=== PATIENT | male | born 1985 | race Caucasian/White ===

== ENCOUNTER 2020-09-20 04:50 | Emergency (ER) | payer OTHER, SELFPAY ==
--- NOTE | ~2020-09-20 | CT_ITS ---
EXAMINATION: CT abdomen pelvis wo con DATE: 09/20/2020 06:54 INDICATION: Upper abdominal pain, nausea and vomiting TECHNIQUE: Computed tomography (CT) of the abdomen and pelvis was performed without intravenous contr ast. Automated exposure control and iterative reconstruction technique were employed. The dose-length product was 827.82 mGy-cm. COMPARISON: None FINDINGS: Calcified pleural-based nodule in the right middle lobe consistent with old granulomatous disease. He art size is normal. No pericardial or pleural effusion. Potentially impacted gallstone at the neck of the gallbladder which is dilated to is 3.8 cm in maximal diameter which remains within normal limits . There is however suggestion of a thin rim of subtle haziness to the pericholecystic fat suspicious for acute cholecystitis. Liver, spleen, pancreas, bilateral adrenal glands and kidneys are normal. Bl adder is normal. Bowels including the appendix are normal. No free intraperitoneal gas or fluid. No p athologically enlarged abdominal or pelvic lymphadenopathy. Mild thoracic and lumbar spondylosis with multiple scattered Schmorl's nodes. IMPRESSION: 1. Suggestion of acute cholecystitis with likely impacted gallstone at the neck of the gallbladder an d very subtle pericholecystic inflammatory changes. Correlate for Boyd sign. If equivocal could con director of primary care HIDA scan for further evaluation. Reviewed, dictated and finalized at location A. IMPRESSION: 1. Suggestion of acute cholecystitis with likely impacted gallstone at the neck of the gallbladder and very subtle pericholecystic inflammatory changes. Corre late for Boyd sign. If equivocal could consider HIDA scan for further evaluat ion.
[2020-09-20 04:50] VITALS: BP 153/105; PULSE 56; RESP 20; TEMP 36.3; O2SAT 100
[2020-09-20] MEDS: KETOROLAC 30 MG/ML VIAL (*BKC) IV PUSH (05:28)
[2020-09-20] MEDS: SODIUM CHLORIDE 0.9% IV 1,000 ML 999 ML IV CONT (05:28)
[2020-09-20] MEDS: ONDANSETRON INJ 4 MG/2 ML VIAL IV PUSH (05:29)
[2020-09-20 05:43] LABS: Add Urine Microscopic? NO; Appearance Urine Clear (Clear); Basophils Absolute Auto 0.08 K/mm3 (0.00-0.10); Basophils Percent Auto 0.7 % (0.0-1.0); Bilirubin Urine Negative (Negative); Blood Urine Negative (Negative); Color Urine Yellow (Yellow); Eosinophils Absolute Auto 0.46 K/mm3 (0.02-0.50); Eosinophils Percent Auto 3.8 % (1.0-6.0); Glucose Urine UA Negative (Negative); Hemoglobin 13.9 g/dL (14.0-18.0); Immature Granulocyte Absolute 0.07 K/mm3 (0.00-0.00); Immature Granulocyte Percent A 0.6 % (0.0-0.0); Ketones Urine Negative (Negative); Leukocyte Esterase Ur Negative (Negative); Lymphocytes Absolute Auto 2.81 K/mm3 (1.10-4.50); Lymphocytes Percent Auto 23.4 % (18.0-42.0); Mean Corpuscular HGB Conc 33.9 g/dL (32.0-36.0); Mean Corpuscular Hemoglobin 29.9 pg (27.0-31.0); Mean Corpuscular Volume 88.2 fL (78.0-102.0); Mean Platelet Volume 11.2 fl (8.7-11.0); Monocytes Absolute Auto 0.91 K/mm3 (0.10-0.90); Monocytes Percent Auto 7.6 % (2.0-11.0); Neutrophils Absolute Auto 7.7 K/mm3 (1.7-7.2); Neutrophils Percent Auto 63.9 % (50.0-70.0); Nitrate Urine Negative (Negative); Platelet Count Result 279 K/mm3 (150-420); Protein Urine Negative (Negative); Red Blood Count 4.65 M/mm3 (4.70-6.10); Red Cell Distribution Width 11.9 % (11.6-14.4)
[2020-09-20 05:53] LABS: Alanine Aminotransferase 37 U/L (16-63); Albumin Level 3.5 g/dL (3.4-5.0); Alkaline Phosphatase 55 U/L (46-116); Anion Gap 10 mmol/L (8-16); Aspartate Amino Transferase 20 U/L (15-37); Bilirubin,Total 0.2 mg/dL (0.00-1.00); Blood Urea Nitrogen 14 mg/dL (7-18); Calcium 8.3 mg/dL (8.5-10.1); Carbon Dioxide 25 mmol/L (21-32); Chloride 105 mmol/L (98-108); Estimated CRCL calculation 97 ml/min; Estimated Glomerular Filt Rate > 60; Glucose 115 mg/dL (70-99); Lipase 82 U/L (73-393); Osmolality Calculated 291 mOsm/kg (285-295); Sodium 140 mmol/L (136-145)
--- NOTE | 2020-09-20 06:42 | ED.GENADULT ---
HPI - General Adult General Chief complaint: Abdominal Pain Stated complaint: Abdominal Pain Source: patient History of Present Illness HPI narrative: this is a 34-year-old male who presents with abdominal pain that radiates to his back mainly the left flank area with some nausea no fever chills patient has a history of diverticulitis and kidney stones. Pain started earlier this morning and and intensified over the morning hours. There is no chest pain no shortness of breath patient does state that he has had hematuria with no dysuria. Onset (ago): hour(s) Location: back and abdomen Radiation: back Severity: moderate Severity scale (1-10): 6 Quality: aching Pain Consistency: intermittent Related Data Allergies Allergy/AdvReac Type Severity Reaction Status Date / Time [place] dust Allergy Rash Uncoded 09/20/20 05:05 Review of Systems Review of Systems: All systems reviewed & are unremarkable except as noted in HPI and below PMFSH Past Medical History Medical History History of diverticulitis History of kidney stones Exam Const: General: no acute distress and alert Orientation/consciousness: patient oriented x3 HENMT: Head: normal to inspection Eyes: Conjunctivae: conjunctivae normal Pupils: Equal, round and reactive pupils present EOM: EOMs intact bilaterally Chest: Chest palpation & inspection: normal inspection of the chest Resp: Effort & Inspection: normal respiratory effort GI: GI Palp: Yes Soft to palpation and Yes Tenderness to palpation present (GI) Back/Spine/Pelvis: Back: CVA tenderness Neuro: General: patient oriented x3 Extrem: General: normal to inspection Psych: Mental Status: mental status grossly normal Affect: normal affect Course Course Emergency Course: reassessment of patient appears comfortable after receiving Zofran and IV Toradol labs reviewed with patient Vital Signs Vital signs: Vital Signs Temperature 36.3 C L 09/20/20 04:50 Pulse Rate 56 L 09/20/20 04:50 Respiratory Rate 09/20/20 04:50 Blood Pressure 153/105 H 09/20/20 04:50 Pulse Oximetry 100 09/20/20 04:50 Temperature 36.3 C L 09/20/20 04:50 Pulse Rate 56 L 09/20/20 04:50 Respiratory Rate 09/20/20 04:50 Blood Pressure 153/105 H 09/20/20 04:50 Pulse Oximetry 100 09/20/21 04:50 Medical Decision Making Vital Signs Vital Signs: Vital Signs Temperature 36.3 C L 09/20/20 04:50 Pulse Rate 56 L 09/20/20 04:50 Respiratory Rate 09/20/20 04:50 Blood Pressure 153/105 H 09/20/20 04:50 Pulse Oximetry 09/20/20 04:50 Temperature 36.3 C L 09/20/20 04:50 Pulse Rate 56 L 09/20/20 04:50 Respiratory Rate 09/20/20 04:50 Blood Pressure 153/105 H 09/20/20 04:50 Pulse Oximetry 09/20/20 04:50 Lab Data Result diagrams: 09/20/20 05:31 09/20/20 05:31 Labs: Lab Results 09/20/20 09/20/20 09/20/20 Range/Units 05:31 05:31 05:31 WBC 12.0 H (4.8-10.8) K/mm3 RBC 4.65 L (4.70-6.10) M/mm3 Hgb 13.9 L (14.0-18.0) g/dL Hct 41.0 (40.0-54.0) % MCV 88.2 (78.0-102.0) fL MCH 29.9 (27.0-31.0) pg MCHC 33.9 (32.0-36.0) g/dL RDW 11.9 (11.6-14.4) % Plt Count 279 (150-420) K/mm3 MPV 11.2 H (8.7-11.0) fl Immature Gran % (Auto) 0.6 H (0.0-0.0) % Neut % (Auto) 63.9 (50.0-70.0) % Lymph % (Auto) 23.4 (18.0-42.0) % [place] % (Auto) 7.6 (2.0-11.0) % Eos % (Auto) 3.8 (1.0-6.0) % Baso % (Auto) 0.7 (0.0-1.0) % Lymph # (Auto) 2.81 (1.10-4.50) K/mm3 [place] # (Auto) 0.91 H (0.10-0.90) K/mm3 Eos # (Auto) 0.46 (0.02-0.50) K/mm3 Baso # (Auto) 0.08 (0.00-0.10) K/mm3 Abs Immat Gran (auto) 0.07 H (0.00-0.00) K/mm3 Absolute Neuts (auto) 7.7 H (1.7-7.2) K/mm3 Absolute Nucleated RBC 0.00 (0.00-0.00) K/mm3 Nucleated RBC % 0.0 (0-0.0) % Sodium 140 (136-145) mmol/L Potassium 4.0
--- NOTE | 2020-09-20 06:52 | PC.NURSE ---
pt resting eyes closed. stated feeling much better .
[2020-09-20 06:56] VITALS: BP 132/95; PULSE 76; RESP 20; TEMP 36.3; O2SAT 98
== END 2020-09-20 07:03 | disposition home or self-care (01) ==
PROVIDERS: Emergency Provider Emergency Medicine; PCP Physician Assistant
DX: K80.80 Other cholelithiasis without obstruction (principal)
CPT/HCPCS: 36415; 74176; 80053; 81003; 83690; 85025; 96361; 96374; 96375; 99283; 99284; J1885; J2405; J7030

== ENCOUNTER 2020-10-30 02:57 | Emergency (ER) | payer OTHER, SELFPAY ==
--- NOTE | ~2020-10-30 | US_ITS ---
EXAMINATION: US right upper quadrant DATE: 10/30/2020 07:49 INDICATION: Right upper quadrant abdominal pain. TECHNIQUE: Multiple grayscale and Doppler ultrasound images of the abdomen were obtained. COMPARISON: CT abdomen and pelvis 09/20/2020 FINDINGS: The visualized portions of the head, body, and tail of the pancreas are normal. There is di ffuse hepatic steatosis. No liver surface nodularity. There is normal flow in main portal vein. The g allbladder is normal in size and contains a gallstone in the neck. Gallbladder wall thickening is not ed. There was a positive sonographic Boyd sign. The common duct is normal and measures 3 mm. IMPRESSION: 1. Acute cholecystitis. 2. Diffuse hepatic steatosis. Reviewed, dictated and finalized at location A.
[2020-10-30 03:00] VITALS: BP 172/109; PULSE 60; RESP 20; TEMP 36.6; O2SAT 99
--- NOTE | 2020-10-30 03:12 | ED.ABDPAIN ---
HPI - Abdominal Pain General Chief Complaint: Abdominal Pain Stated Complaint: Back pain/ Stomach pain Time Seen by Provider: 10/30/20 03:12 Source: patient Mode of arrival: ambulatory Limitations: no limitations History of Present Illness HPI narrative: 34-year-old man with a history of urolithiasis and who was diagnosed with gallstone cholecystitis on September 20 comes in today complaining of right upper quadrant pain radiating to his mid abdomen and nausea that started approximately 4 hours ago. Patient states that after he was diagnosed with cholecystitis and he did not follow up with his doctor because his pain resolved. He has had no issues until this evening. He states that he has been having some dysuria intermittently but no hematuria. He denies vomiting, fever, diarrhea, jaundice, back pain, or chest pain. MD elicited complaint: abdominal pain Pertinent past history: kidney stones and other ( Gallstone cholecystitis) Onset (ago): hour(s) (4) Location: RUQ Severity: severe Quality: cramping Radiation: other ( mid abdomen) Migration to: no migration Exacerbating factors: nothing Relieving factors: nothing Context: confirms history of similar episodes Associated symptoms: nausea Related Data Home Medications Medication Instructions Recorded Confirmed No Home Medications 10/30/20 10/30/20 Allergies Allergy/AdvReac Type Severity Reaction Status Date / Time hydrocodone Allergy Unknown Verified 10/30/20 03:38 [place] dust Allergy Unknown Rash Uncoded 10/30/20 03:38 Review of Systems Review of Systems: All systems reviewed & are unremarkable except as noted in HPI and below Constitutional: Constitutional: Denies chills and Denies fever(s) Eyes: Eyes: Denies change in vision and Denies photophobia ENT: Denies nasal congestion and Denies sore throat Cardiovascular: Cardiovascular: Denies chest pain and Denies radiating jaw, neck or arm pain Respiratory: Respiratory: Denies cough, Denies dyspnea and Denies wheezing Gastrointestinal: Gastrointestinal: Reports abdominal pain, Denies diarrhea, Reports nausea and Denies vomiting Genitourinary: Genitourinary: Denies hematuria, Reports dysuria and Denies urinary frequency Musculoskeletal: Musculoskeletal: Denies back pain, Denies arthralgias and Denies joint swelling Integumentary/Breasts: Skin/Breast: Denies pruritus, Denies erythema and Denies rash Neurologic: Denies vertigo, Denies dizziness and Denies syncope Hematologic/Lymphatic: Hematologic/Lymphatic: Denies easy bleeding and Denies easy bruising Allergic/Immunologic: Allergic/Immunologic: Denies lip swelling and Denies throat swelling [facility] Past Medical History Medical History History of diverticulitis History of kidney stones Social History Social History Smoking status: Current every day smoker Substance use: current Substance use type: marijuana Other substance usage details: daily Living arrangements: with family Exam Const: General: healthy appearing and alert Orientation/consciousness: patient oriented x3 Limitations: no limitations Other: moderate acute distress. HENMT: Head: normal to inspection Face and sinus: normal facial exam Mouth: Yes moist mucous membranes Throat: posterior oropharynx normal Eyes: Conjunctivae: conjunctivae normal Pupils: Equal, round and reactive pupils present EOM: EOMs intact bilaterally Resp: Effort & Inspection: normal respiratory effort and not labored Auscultation: clear to auscultation bilaterally, no rales, no rhonchi and no wheezes Cardio: Rate: regular rate Rhythm: regular rhythm Heart sounds: no murmurs GI: GI Palp: Yes Soft to palpation, Yes Tenderness to palpation present (GI) ( Right upper quadrant), No Guarding due to palpation present (GI) and No Rigid due to palpation Auscultation: normal bowel sounds Skin: G
[2020-10-30] MEDS: ONDANSETRON INJ 4 MG/2 ML VIAL IV PUSH (03:25)
[2020-10-30] MEDS: KETOROLAC 30 MG/ML VIAL (*BKC) IV PUSH (03:26)
[2020-10-30] MEDS: SODIUM CHLORIDE 0.9% IV 1,000 ML 999 ML IV CONT (03:30)
[2020-10-30 03:33] LABS: Basophils Absolute Auto 0.09 K/mm3 (0.00-0.10); Basophils Percent Auto 0.6 % (0.0-1.0); Eosinophils Absolute Auto 0.51 K/mm3 (0.02-0.50); Eosinophils Percent Auto 3.4 % (1.0-6.0); Hematocrit 41.5 % (40.0-54.0); Hemoglobin 14.5 g/dL (14.0-18.0); Immature Granulocyte Absolute 0.09 K/mm3 (0.00-0.00); Immature Granulocyte Percent A 0.6 % (0.0-0.0); Lymphocytes Percent Auto 28.8 % (18.0-42.0); Mean Corpuscular HGB Conc 34.9 g/dL (32.0-36.0); Mean Corpuscular Hemoglobin 30.1 pg (27.0-31.0); Mean Corpuscular Volume 86.3 fL (78.0-102.0); Mean Platelet Volume 10.7 fl (8.7-11.0); Monocytes Absolute Auto 1.18 K/mm3 (0.10-0.90); Monocytes Percent Auto 7.9 % (2.0-11.0); Neutrophils Absolute Auto 8.7 K/mm3 (1.7-7.2); Neutrophils Percent Auto 58.7 % (50.0-70.0); Platelet Count Result 274 K/mm3 (150-420); Red Blood Count 4.81 M/mm3 (4.70-6.10); Red Cell Distribution Width 11.8 % (11.6-14.4); White Blood Count 14.9 K/mm3 (4.8-10.8)
[2020-10-30 03:33] LABS: Add Urine Microscopic? YES; Appearance Urine Clear (Clear); Bilirubin Urine Negative (Negative); Blood Urine Negative (Negative); Color Urine Yellow (Yellow); Glucose Urine UA Negative (Negative); Ketones Urine Negative (Negative); Leukocyte Esterase Ur Negative LEU/UL (Negative); Nitrate Urine Negative (Negative); Protein Urine Trace (Negative); Specific Grav Ur 1.025 (1.010-1.020); Urobilinogen Urine 0.2 mg/dL (0.2-1.0); pH Urine 6.5 (5.0-8.0)
[2020-10-30] MEDS: PANTOPRAZOLE SODIUM IV 40 MG VIAL IV PUSH (03:34)
[2020-10-30] MEDS: HYDROmorphone HCL INJ (*CRX) 2 MG/ML VIAL 0.5 MG IV PUSH (03:35)
[2020-10-30 03:41] LABS: Amorphous Sediment Urine Few; Bacteria Urine Trace /hpf; RBC Urine 0-2 /hpf (0-2); WBC Urine 0-3 /hpf (0-3)
[2020-10-30 03:48] LABS: Alanine Aminotransferase 35 U/L (16-63); Albumin Level 3.7 g/dL (3.4-5.0); Alkaline Phosphatase 56 U/L (46-116); Anion Gap 15 mmol/L (8-16); Aspartate Amino Transferase 15 U/L (15-37); Bilirubin,Total 0.4 mg/dL (0.00-1.00); Blood Urea Nitrogen 19 mg/dL (7-18); Carbon Dioxide 22 mmol/L (21-32); Chloride 104 mmol/L (98-108); Estimated CRCL calculation 93 ml/min; Estimated Glomerular Filt Rate > 60; Glucose 121 mg/dL (70-99); Lipase 84 U/L (73-393); Osmolality Calculated 295 mOsm/kg (285-295); Potassium 3.5 mmol/L (3.5-5.1); Sodium 141 mmol/L (136-145); Total Protein 7.2 g/dL (6.4-8.2)
[2020-10-30 03:51] LABS: Lactic Acid Reflex 1.3 mmol/L (0.4-2.0)
[2020-10-30] MEDS: SODIUM CHLORIDE 0.9% IV 1,000 ML 200 ML IV CONT (04:16)
[2020-10-30 04:17] VITALS: BP 125/96; PULSE 58; RESP 18; O2SAT 99
--- NOTE | 2020-10-30 04:17 | PC.NURSE ---
Pt. resting, lights dimmed, POC discussed for U/S this AM, VSS and fluids infusing per order. Call mo in reach.
--- NOTE | 2020-10-30 07:16 | PC.NURSE ---
Pt. sleeping, report to TREY Harris
[2020-10-30] MEDS: metroNIDAZOLE 500 MG/ISO 100ML 500 MG/100 ML BAG 100 MG IVPB (08:29)
[2020-10-30] MEDS: NICOTINE (*PBKC) 21 MG PATCH 1 PATCH TRANSDERM (08:33)
--- NOTE | 2020-10-30 08:35 | ED.GENADULT ---
HPI - General Adult General Chief complaint: Abdominal Pain Stated complaint: Back pain/ Stomach pain Time Seen by Provider: 10/30/20 03:12 Source: patient Mode of arrival: ambulatory Limitations: no limitations History of Present Illness HPI narrative: Rony is a 34M with a PMH of gallstones, urolithiasis, tobacco abuse and MJ use that presented to the ED with RUQ pain. Care was taken over from Dr. Fuller at 0700. Please see his note for further details. Related Data Home Medications Medication Instructions Recorded Confirmed No Home Medications 10/30/20 10/30/20 Allergies Allergy/AdvReac Type Severity Reaction Status Date / Time hydrocodone Allergy Unknown Verified 10/30/20 03:38 [place] dust Allergy Unknown Rash Uncoded 10/30/20 03:38 Review of Systems Constitutional: Constitutional: Reports chills and Denies fever(s) Eyes: Eyes: Reports no additional eye complaints ENT: Reports system reviewed and no additional complaints, except as documented Cardiovascular: Cardiovascular: Reports no additional cardiovascular complaints Respiratory: Respiratory: Reports no additional respiratory complaints Gastrointestinal: Gastrointestinal: Reports as per HPI Genitourinary: Genitourinary: Reports no additional male genitourinary complaints Musculoskeletal: Musculoskeletal: Reports no additional musculoskeletal complaints Integumentary/Breasts: Skin/Breast: Reports system reviewed and no additional complaints, except as docu Neurologic: Reports system reviewed and no additional complaints, except as documented Psychiatric: Psychiatric: Reports no additional psychiatric complaints Endocrine: Endocrine: Reports no additional endocrine complaints Hematologic/Lymphatic: Hematologic/Lymphatic: Reports no additional hematologic/lymphatic complaints Allergic/Immunologic: Allergic/Immunologic: Reports no additional allergic/immunologic complaints [facility] Past Medical History Medical History History of diverticulitis History of kidney stones Social History Social History Smoking status: Current every day smoker Substance use: current Substance use type: marijuana Other substance usage details: daily Living arrangements: with family Exam Const: General: no acute distress and alert Orientation/consciousness: patient oriented x3 Limitations: No altered mental status HENMT: Head: normal to inspection Other: atraumatic Eyes: Conjunctivae: conjunctivae normal Pupils: Equal, round and reactive pupils present Resp: Effort & Inspection: normal respiratory effort Cardio: Rate: regular rate GI: Other: Abdominal exam was not repeated as it would cause additional pain and has already been done Skin: General skin exam: normal color Rashes: no rashes Neuro: General: patient oriented x3 and moves all extremities Extrem: General: normal to inspection Psych: Appearance: grossly normal Mental Status: mental status grossly normal Course Course Emergency Course: Care resumed at 0700 EXAMINATION: US right upper quadrant DATE: 10/30/2020 07:49 INDICATION: Right upper quadrant abdominal pain. TECHNIQUE: Multiple grayscale and Doppler ultrasound images of the abdomen were obtained. COMPARISON: CT abdomen and pelvis 09/20/2020 FINDINGS: The visualized portions of the head, body, and tail of the pancreas are normal. There is diffuse hepatic steatosis. No liver surface nodularity. There is normal flow in main portal vein. The gallbladder is normal in size and contains a gallstone in the neck. Gallbladder wall thickening is noted. There was a positive sonographic Boyd sign. The common duct is normal and measures 3 mm. IMPRESSION: 1. Acute cholecystitis. 2. Diffuse hepatic steatosis. Was started on ceftriaxone and metronidazole and [place] was contacted. I spoke with Dr. Boggs who recommended
--- NOTE | 2020-10-30 08:39 | PC.NURSE ---
[facility] transfer line contacted. awaiting call back
[2020-10-30 10:27] VITALS: BP 133/96; PULSE 55; RESP 14; TEMP 36.6; O2SAT 100
--- NOTE | 2020-11-01 10:16 | PC.NURSE ---
pt requested to be transferred to [facility]
== END 2020-10-30 10:20 | disposition short-term general hospital (02) ==
PROVIDERS: Emergency Provider Emergency Medicine; PCP Family Medicine
DX: K81.0 Acute cholecystitis (principal)
CPT/HCPCS: 36415; 76705; 80053; 81001; 83605; 83690; 85025; 96361; 96365; 96367; 96375; 99285; A9270; C9113; J0696; J1170; J1885; J2405; J7030

== ENCOUNTER 2021-03-21 17:47 | Emergency (ER) | payer OTHER, SELFPAY ==
[2021-03-21 17:55] VITALS: BP 148/101; PULSE 87; RESP 20; TEMP 36.2; O2SAT 97
--- NOTE | 2021-03-21 18:04 | ED.PSYCH ---
HPI - Psych General Chief Complaint: Psychiatric Symptoms Stated Complaint: Mental Health Eval Time Seen by Provider: 03/21/21 18:04 Source: patient Mode of arrival: ambulatory Limitations: no limitations History of Present Illness HPI Narrative: 35-year-old male with history of ADD, hypertension going through tough times. He lives with his father who has bipolar and schizophrenia. His father's house where he lives and has unpaid taxes and the county is due to take over the house. He is likely to become homeless. He is having problems with his sister who keeps wanting him that he makes very little money. Today when he got back from work his family wanted him to get psychiatrically evaluated. The patient feels that he has a punching bag for his family. the patient does not have a prior history of hospitalization for psychiatric issues. He presents to the ER with -- hopelessness and inability to improve his life. He feels depressed. He started a new job today at [employer]. -- On the way to the hospital the patient felt like crashing his car into an electrical pole. Subsequently the patient felt remorseful about his suicidal thought. Presently the patient does not feel suicidal. he does not feel homicidal. The patient has not ingested any drug or alcohol. He smokes marijuana intermittently. MD complaint: suicidal ideation and feels depressed Onset (ago): day(s) Duration: intermittent History of same: No Relieving factors: other ( Family matters) Context: recent drug abuse and other ( patient has had marijuana.) Associated psychiatric symptoms: depression and suicidal ideation Associated symptoms: denies other symptoms Treatments prior to arrival: none If self harm: admits thoughts of self harm and has plan Related Data Home Medications Medication Instructions Recorded Confirmed No Home Medications 10/30/20 03/21/21 Allergies Allergy/AdvReac Type Severity Reaction Status Date / Time hydrocodone Allergy Unknown Verified 10/30/20 03:38 [place] dust Allergy Unknown Rash Uncoded 10/30/20 03:38 Review of Systems Review of Systems: All systems reviewed & are unremarkable except as noted in HPI and below Constitutional: Constitutional: Reports as per HPI and Reports no additional constitutional complaints Eyes: Eyes: Reports as per HPI and Reports no additional eye complaints ENT: Reports system reviewed and no additional complaints, except as documented Cardiovascular: Cardiovascular: Reports as per HPI and Reports no additional cardiovascular complaints Respiratory: Respiratory: Reports as per HPI Gastrointestinal: Gastrointestinal: Reports as per HPI and Reports no additional gastrointestinal complaints Genitourinary: Genitourinary: Reports no additional male genitourinary complaints and Reports as per HPI Musculoskeletal: Musculoskeletal: Reports no additional musculoskeletal complaints Integumentary/Breasts: Skin/Breast: Reports system reviewed and no additional complaints, except as docu Neurologic: Reports system reviewed and no additional complaints, except as documented Psychiatric: Psychiatric: Reports no additional psychiatric complaints Endocrine: Endocrine: Reports no additional endocrine complaints Hematologic/Lymphatic: Hematologic/Lymphatic: Reports no additional hematologic/lymphatic complaints Allergic/Immunologic: Allergic/Immunologic: Reports no additional allergic/immunologic complaints [facility] Past Medical History Medical History History of diverticulitis History of kidney stones Family History Family History (Updated 03/21/21 @ 18:56 by Yimi Carlos MD) Father No problems noted. Social History Social History Smoking status: Current every day smoker Substance use: current Substance use type: marijuana Other substance usage details: daily
--- NOTE | 2021-03-21 18:05 | ECG_ITS ---
Measurements Intervals [place] Rate: 66 P: 66 HI: 161 QRS: 72 QRSD: 98 T: 60 QT: 360 QTc: 378 Interpretive Statements SINUS RHYTHM INCOMPLETE RIGHT BUNDLE BRANCH BLOCK BORDERLINE ECG Electronically Signed On 03-21-2021 20:13:01 SURVEY CAD TECHNICIAN by Sheldon Luz D.O.
[2021-03-21 18:17] LABS: Basophils Absolute Auto 0.08 K/mm3 (0.00-0.10); Basophils Percent Auto 0.6 % (0.0-1.0); Eosinophils Absolute Auto 0.23 K/mm3 (0.02-0.50); Eosinophils Percent Auto 1.8 % (1.0-6.0); Hematocrit 44.3 % (40.0-54.0); Hemoglobin 15.1 g/dL (14.0-18.0); Immature Granulocyte Absolute 0.07 K/mm3 (0.00-0.00); Immature Granulocyte Percent A 0.5 % (0.0-0.0); Lymphocytes Absolute Auto 3.31 K/mm3 (1.10-4.50); Mean Corpuscular HGB Conc 34.1 g/dL (32.0-36.0); Mean Corpuscular Hemoglobin 30.3 pg (27.0-31.0); Mean Platelet Volume 10.5 fl (8.7-11.0); Monocytes Absolute Auto 0.89 K/mm3 (0.10-0.90); Neutrophils Absolute Auto 8.2 K/mm3 (1.7-7.2); Neutrophils Percent Auto 64.1 % (50.0-70.0); Platelet Count Result 285 K/mm3 (150-420); Red Blood Count 4.98 M/mm3 (4.70-6.10); Red Cell Distribution Width 11.7 % (11.6-14.4); White Blood Count 12.8 K/mm3 (4.8-10.8)
[2021-03-21 18:33] LABS: Amphetamine Screen Urine Negative (Negative); Barbiturate Screen Urine Negative (Negative); Benzodiazepines Screen Urine Negative (Negative); Cannabinoid Screen Urine Positive (Negative); Cocaine Screen Urine Negative (Negative); Methadone Screen Urine Negative (Negative); Opiate Screen Urine Negative (Negative); Phencyclidine Screen Urine Negative (Negative)
--- NOTE | 2021-03-21 18:36 | PC.NURSE ---
report to TREY menendez. pt remains on visual monitor at desk.
[2021-03-21 18:43] LABS: Alanine Aminotransferase 29 U/L (16-63); Alkaline Phosphatase 57 U/L (46-116); Anion Gap 10 mmol/L (8-16); Aspartate Amino Transferase 23 U/L (15-37); Bilirubin,Total 0.5 mg/dL (0.00-1.00); Blood Urea Nitrogen 14 mg/dL (7-18); Calcium 8.9 mg/dL (8.5-10.1); Carbon Dioxide 29 mmol/L (21-32); Chloride 102 mmol/L (98-108); Estimated CRCL calculation 94 ml/min; Estimated Glomerular Filt Rate > 60; Glucose 91 mg/dL (70-99); Osmolality Calculated 292 mOsm/kg (285-295); Potassium 3.6 mmol/L (3.5-5.1); Sodium 141 mmol/L (136-145); Total Protein 7.9 g/dL (6.4-8.2); Troponin I 6.5 ng/L (0.00-60.4)
[2021-03-21 18:46] LABS: Thyroid Stimulating Hormone 2.24 uIU/mL (0.36-3.74)
[2021-03-21 18:46] LABS: Acetaminophen < 2 ug/mL (10-30); Ethanol < 3 mg/dL (0-6); Salicylate 5.1 mg/dL (2.8-20.0)
--- NOTE | 2021-03-21 19:05 | PC.NURSE ---
report to TREY Mendiola
[2021-03-21 19:26] LABS: SARS-CoV-2 RNA PCR Negative (Negative)
--- NOTE | 2021-03-21 20:52 | PC.NURSE ---
Patient currently doing evaluation by Misael Mills while in room. patient given lunch meal and something to drink at this time.
[2021-03-21 22:09] VITALS: BP 145/88; PULSE 70; RESP 16; TEMP 36.6; O2SAT 98
== END 2021-03-21 22:09 | disposition home or self-care (01) ==
PROVIDERS: Emergency Provider Internal Medicine Critical Care Medicine
DX: F32.A Depression, unspecified (principal); R45.851 Suicidal ideations; Z20.822 Contact with and (suspected) exposure to COVID-19
CPT/HCPCS: 36415; 80053; 80307; 84443; 84484; 85025; 93005; 99283; 99284; C9803; U0003; U0005

== ENCOUNTER 2024-12-30 06:31 | Emergency (ER) | payer OTHER, SELFPAY ==
--- NOTE | ~2024-12-30 | CT_ITS ---
Bobby Mallory EXAMINATION: CT abdomen pelvis w con COMPARISON: None HISTORY: RLQ abd pain; n/v/d TECHNIQUE: Axial images were obtained through the abdomen, pelvis post administration of IV contrast. Oral contrast was also administered. Coronal reconstruction images were obtained from the axial views. CT scan performed using dose optimization techniques including the following automated exposure control; adjustment of mA and/or kV; use of iterative reconstruction technique. Automatic exposure control was used to reduce radiation dose. Permanent radiation dose record is archived to PACS. FINDINGS: CT abdomen: LUNG BASES: The lung bases are clear. The visualized portions of the heart and pericardium are unremarkable. LIVER: Mild hepatic steatosis. Portal vein patent. No intrahepatic biliary duct dilatation. SPLEEN: Unremarkable. KIDNEYS: Right Kidney: Right kidney subcentimeter probable renal cysts. Left Kidney: Left kidney subcentimeter probable renal cysts. ADRENAL GLANDS: Unremarkable. PANCREAS: Unremarkable. GALLBLADDER/BILIARY: Postcholecystectomy. STOMACH AND ESOPHAGUS: Visualized stomach and esophagus within normal limits. BOWEL/MESENTERY: Mild hyperemia of the large bowel most marked involving the descending colon with multiple fluid filled loops of small and large bowel. Appendix normal. Mild hyperemia noted of the distal small bowel. There are no dilated small bowel loops. Mesentery normal. ADENOPATHY/RETROPERITONEUM: No lymphadenopathy. AORTA/VASCULATURE: Normal caliber aorta. FREE FLUID OR FREE AIR: No free fluid.. CT pelvis: SOLID ORGANS/REPRODUCTIVE: Unremarkable. BLADDER: Within normal limits. OSSEOUS STRUCTURES: No acute osseous abnormality.No suspicious lesions. OVERLYING SOFT TISSUES: Unremarkable. IMPRESSION: Mild probable enterocolitis Reviewed, dictated and finalized at location A. IMPRESSION: Mild probable enterocolitis
[2024-12-30 06:33] VITALS: BP 133/102; PULSE 83; RESP 18; TEMP 36.6; O2SAT 99
[2024-12-30 06:46] LABS: Hematocrit 48.3 % (42.0-52.0); Hemoglobin 16.3 g/dL (14.0-18.0); Immature Granulocyte Percent A 0.7 % (0-0.5); Lymphocytes Absolute Auto 1.31 K/mm3 (0.9-3.2); Mean Corpuscular HGB Conc 33.7 g/dl (32-36); Mean Corpuscular Hemoglobin 29.9 pg (26-34); Mean Corpuscular Volume 88.6 fl (80-100); Nucleated Red Blood Cells Absolute Auto 0.000 K/mm3 (0.0-0.012); Nucleated Red Blood Cells Perc 0.0 % (0.0-0.2); Platelet Count Result 392 k/mm3 (150-375); Red Blood Count 5.45 M/mm3 (4.6-6.20); White Blood Count 17.5 K/mm3 (4.5-10.0)
[2024-12-30 07:06] LABS: Add Urine Microscopic? YES; Appearance Urine Turbid (Clear); Glucose Urine UA Negative (Negative); Leukocyte Esterase Ur Trace LEU/UL (Negative); Need Manual Microscopic Reviewed; Nitrate Urine Negative (Negative); Specific Grav Ur 1.028 (1.001-1.035)
[2024-12-30 07:07] LABS: Alanine Aminotransferase 26 U/L (6-50); Albumin Level 4.6 g/dL (3.5-5.1); Alkaline Phosphatase 73 U/L (38-126); Anion Gap 10 mmol/L (4-12); Aspartate Amino Transferase 28 U/L (17-59); Bilirubin,Total 0.5 mg/dL (0.2-1.3); Blood Urea Nitrogen 15 mg/dL (9-20); Calcium 9.5 mg/dL (8.4-10.2); Carbon Dioxide 25 mmol/L (22-30); Chloride 105 mmol/L (98-107); Estimated CRCL calculation 93 ml/min; Estimated Glomerular Filt Rate > 60; Glucose 142 mg/dL (65-110); Lipase 43 U/L (23-300); Potassium 4.3 mmol/L (3.4-5.0); Sodium 140 mmol/L (137-145); Total Protein 8.7 g/dL (6.3-8.2)
--- NOTE | 2024-12-30 07:39 | PC.NURSE ---
patient ambulatory to bathroom and back to bed.
--- NOTE | 2024-12-30 08:05 | PC.NURSE ---
patient unable to urinate at this time. aware a urine sample is needed.
--- NOTE | 2024-12-30 08:07 | ED_ITS ---
HPI - Nausea/Vomiting/Diarrhea General Chief complaint: Nausea/Vomiting/Diarrhea Stated complaint: N/V/D Time Seen by Provider: 12/30/24 07:43 Source: patient and RN notes reviewed Mode of arrival: EMS Limitations: no limitations History of Present Illness HPI Narrative: Patient presents with report of acute onset nausea, vomiting, and diarrhea starting at approximately midnight. Patient currently living in his vehicle although he was in a hotel room last night when this started. He reports low abdominal pain particularly in the right lower quadrant. He denies any bloody emesis although he states towards the end it was black/dark, like aspiration.Potential sick contacts as his niece and nephew or in and out of school and his sister whom he sees regularly works in healthcare although known known sick contacts or anyone with similar symptoms. History of a stroke with resultant occasional left-sided numbness. He also has a history of kidney stones. He passed his last 1 approximately 2 months ago and states this was kidney stone 15. Travel has been in his car. He reports fever maximum temperature 102.0?. Last oral intake was on December 28 in the morning. He does not currently have an appetite. He has taken no medications prior to arrival. He states he has experienced pain like this before but not as intense. He notes he is supposed to follow with a resident care manager but he no longer has a primary care physician as his primary care physician left their practice to do telemedicine. He describes his stool as very watery but otherwise nonbloody. He was on antibiotics briefly for concern for an infected splinter in his hand but this was weeks ago. At he denies any abdominal surgeries but then he does state that he is status post cholecystectomy upon questioning. Says he has been to a few hospitals with this with past few days to weeks. Related Data Home Medications ?Medication ?Instructions ?Recorded ?Confirmed ?Last Taken ?Type No Home Medications 10/30/20 03/21/21 U nknown History Allergies Allergy/AdvReac Type Severity Reaction Status Date / Time hydrocodone Allergy hives Verified 12/30/24 08:17 [place] dust Allergy Unknown Rash Uncoded 10/30/20 03:38 [facility] Past Medical History Medical History (Updated 12/30/24 @ 11:10 by Radha Sandoval MD) History of diverticulitis History of kidney stones Surgical History Surgical History History of cholecystectomy Family History Family History (Updated 03/21/21 @ 18:56 by Yimi Carlos MD) Father No problems noted. Social History Social History Smoking status: Current every day smoker Substance use: current Substance use type: marijuana Other substance usage details: daily Additional living arrangements comments: intermittent homelessness Exam 2 Narrative: GENERAL: Well-appearing, well-nourished, and in no acute distress. HEAD: Normocephalic, atraumatic. EYES: Non injected, non icteric ENT: Nares clear, no rhinorrhea or epistaxis. Gross auditory acuity intact. NECK: Supple. No meningismus. CHEST: Speaking in full sentences. No respiratory distress. HEART: Regular rate and rhythm. . ABDOMEN: Soft, mildly distended. TTP particularly in RLQ. Mild rigidity/guarding. EXTREMITIES: Normal range of motion. No lower extremity edema. SKIN: Warm, dry, no rash. NEURO: No focal deficits. Alert and oriented. Answering questions. Following commands. Normal speech without aphasia or dysarthria. PSYCH: Congruent mood and affect. Course Vital Signs Vital signs: Vital Signs Temperature 98 F 12/30/24 06:33 Pulse Rate 83 12/30/24 06:33 Respiratory Rate 18 12/30/24 06:33 Blood Pressure 133/102 H 12/30/24 06:33 Pulse Oximetry 99 12/30/24 06:33 Oxygen Delivery Room Air 12/30/24 06:33 Temperature 98 F 12/30/24 06:33 Pulse Rate 83 12/30/24 06:33 Respiratory Rate 18 12/30/24 06:33 Blood Pressure 133/102 H 12/30/24 06:33 Pulse Oximetry 99 12/30/24 06:33 Oxygen Delivery Room Air 12/30/24 06:33 MDM - Nausea/Vomiting/Diarrhea MDM Narrative Medical decision making narrative: Patient presents with acute onset nausea vomiting and diarrhea starting approximately midnight although he has been having intermittent abdominal pain, low, for longer than this. States he has been in and out of multiple hospitals. In the emergency department he is afebrile with vital signs notable for hypertension, particularly diastolic blood pressure. Social determinants of health : transient/intermittent homelessness The differential for acute ( less than 14d) diarrhea includes infectious etiologies (viral, preformed toxins, toxins formed after colonization, invasive bacteria, and parasites), medications, inflammatory causes (IBD, radiation enteritis, ischemic colitis, diverticulitis), malabsorption, secretory causes, or motility disorders. He has a leukocytosis and thrombocytosis. Chronic leukocytosis although more elevated today and last labs were from 4 years ago. Will proceed with CT imaging. He reports allergy to hydrocodone including hives and that his throat closes and he does not take any opiate/narcotic medicatins. IV fluids, PO Tylenol, and ondansetron ordered. Mild hyperglycemia without anion gap or acidosis. No bacteria seen on urinalysis, appears to be sterile pyuria. Viral swab negative. No hypo magnesemia. C diff testing negative. While I am dealing with an emergent patient, I was told that patient wanted to leave. I was told his CT scan was back. Patient not willing for me to review it and/for me to talk with him. (Unclear delay in patient's Stat Rad CT impression being presented to me but I did find it after, as below) Patient did not receive discharge instructions or prescriptions. Differential Diagnosis Differential diagnosis: Likely traveler's diarrhea, food poisoning, gastroenteritis, clostridium difficile infection, drug-induced nausea and vomiting, dehydration and other (Kidney stone, appendicitis, epiploic appendagitis, diverticulitis, constipation; UTI) Lab Data 12/30/24 06:40 12/30/24 06:39 Labs: Lab Results 12/30/24 12/30/24 12/30/24 Range/Units 06:39 06:40 06:45 WBC 17.5 H (4.5-10.0) K/mm3 RBC 5.45 (4.6-6.20) M/mm3 Hgb 16.3 (14.0-18.0) g/dL Hct 48.3 (42.0-52.0) % MCV 88.6 (80-100) fl MCH 29.9 (26-34) pg MCHC 33.7 (32-36) g/dl RDW 12.0 (11.5-14.5) % Plt Count 392 H (150-375) k/mm3 MPV 10.4 (7.4-10.4) fl Immature Gran % (Auto) 0.7 H (0-0.5) % Neut % (Auto) 86.9 H (45.5-73.1) % Lymph % (Auto) 7.5 L (18.3-44.2) % [place] % (Auto) 4.1 (2.6-8.5) % Eos % (Auto) 0.5 (0-4.4) % Baso % (Auto) 0.3 (0.2-1.2) % Lymph # (Auto) 1.31 (0.9-3.2) K/mm3 [place] # (Auto) 0.7 H (0.1-0.6) K/mm3 Eos # (Auto) 0.1 (0-0.3) K/mm3 Baso # (Auto) 0.1 (0.0-0.1) K/mm3 Abs Immat Gran (auto) 0.12 H (0.00-0.031) K/mm3 Absolute Neuts (auto) 15.2 H (1.3-6.7) K/mm3 Absolute Nucleated RBC 0.000 (0.0-0.012) K/mm3 Nucleated RBC % 0.0 (0.0-0.2) % Sodium 140 (137-145) mmol/L Potassium 4.3 (3.4-5.0) mmol/L Chloride 105 (98-107) mmol/L Carbon Dioxide 25 (22-30) mmol/L Anion Gap 10 (4-12) mmol/L BUN 15 (9-20) mg/dL Creatinine 1.02 (0.7-1.3) mg/dL Estim Creat Clear Calc 93 ml/min Estimated GFR > 60 (59 - ) Glucose 142 H (65-110) mg/dL Calcium 9.5 (8.4-10.2) mg/dL Magnesium 2.0 (1.6-2.3) mg/dL Total Bilirubin 0.5 (0.2-1.3) mg/dL AST 28 (17-59) U/L ALT 26 (6-50) U/L Alkaline Phosphatase 73 (38-126) U/L Total Protein 8.7 H (6.3-8.2) g/dL Albumin 4.6 (3.5-5.1) g/dL Lipase 43 (23-300) U/L Urine Color Dark yellow (Yellow) Urine Appearance Turbid H (Clear) Urine pH 5.5 (5.0-9.0) Ur Specific [place] 1.028 (1.001-1.035) Urine Protein 1+ H (Negative) mg/dL Urine Glucose (UA) Negative (Negative) mg/dL Urine Ketones 1+ H (Negative) mg/dL Ur Blood (Man) Negative (Negative) Urine Nitrate Negative (Negative) Urine Bilirubin 1+ H (Negative) Urine Urobilinogen 1.0 (<2.0) mg/dL Add Ur Microanalysis Reviewed Leukocyte Esterase Rfl Trace H (Negative) LO/UL Urine RBC 0-2 (0-2) /hpf Urine WBC 6-10 H (0-3) /hpf Ur Squamous Epith Cells Few (Few) /hpf Urine Bacteria None seen /hpf Urine Casts 6-10 Urine Mucus Present /lpf C. difficile (PCR) (NEGATIVE) Influenza A (RT-PCR) (Negative) Influenza B (RT-PCR) (Negative) SARS-CoV-2 RNA (RT-PCR) (Negative) 12/30/24 12/30/24 Range/Units 08:27 09:02 WBC (4.5-10.0) K/mm3 RBC (4.6-6.20) M/mm3 Hgb (14.0-18.0) g/dL Hct (42.0-52.0) % MCV (80-100) fl MCH (26-34) pg MCHC (32-36) g/dl RDW (11.5-14.5) % Plt Count (150-375) k/mm3 MPV (7.4-10.4) fl Immature Gran % (Auto) (0-0.5) % Neut % (Auto) (45.5-73.1) % Lymph % (Auto) (18.3-44.2) % [place] % (Auto) (2.6-8.5) % Eos % (Auto) (0-4.4) % Baso % (Auto) (0.2-1.2) % Lymph # (Auto) (0.9-3.2) K/mm3 [place] # (Auto) (0.1-0.6) K/mm3 Eos # (Auto) (0-0.3) K/mm3 Baso # (Auto) (0.0-0.1) K/mm3 Abs Immat Gran (auto) (0.00-0.031) K/mm3 Absolute Neuts (auto) (1.3-6.7) K/mm3 Absolute Nucleated RBC (0.0-0.012) K/mm3 Nucleated RBC % (0.0-0.2) % Sodium (137-145) mmol/L Potassium (3.4-5.0) mmol/L Chloride (98-107) mmol/L Carbon Dioxide (22-30) mmol/L Anion Gap (4-12) mmol/L BUN (9-20) mg/dL Creatinine (0.7-1.3) mg/dL Estim Creat Clear Calc ml/min Estimated GFR (59 - ) Glucose (65-110) mg/dL Calcium (8.4-10.2) mg/dL Magnesium (1.6-2.3) mg/dL Total Bilirubin (0.2-1.3) mg/dL AST (17-59) U/L ALT (6-50) U/L Alkaline Phosphatase (38-126) U/L Total Protein (6.3-8.2) g/dL Albumin (3.5-5.1) g/dL Lipase (23-300) U/L Urine Color (Yellow) Urine Appearance (Clear) Urine pH (5.0-9.0) Ur Specific [place] (1.001-1.035) Urine Protein (Negative) mg/dL Urine Glucose (UA) (Negative) mg/dL Urine Ketones (Negative) mg/dL Ur Blood (Man) (Negative) Urine Nitrate (Negative) Urine Bilirubin (Negative) Urine Urobilinogen (<2.0) mg/dL Add Ur Microanalysis Leukocyte Esterase Rfl (Negative) LO/UL Urine RBC (0-2) /hpf Urine WBC (0-3) /hpf Ur Squamous Epith Cells (Few) /hpf Urine Bacteria /hpf Urine Casts Urine Mucus /lpf C. difficile (PCR) Negative (NEGATIVE) Influenza A (RT-PCR) Negative (Negative) Influenza B (RT-PCR) Negative (Negative) SARS-CoV-2 RNA (RT-PCR) Negative (Negative) Imaging Data Radiologist's impression: CT Abd & Pelvis Stat Rad w/ contrast: Under distension and potentially mild thickening and some colonic segments. Mild thickening suggested in the distal small bowel. Findings may be on the basis of infectious enteric colitis or inflammatory bowel disease. Fluid in the colon suggesting diarrhea. No evidence of appendicitis. No incidental findings. Impressions Abdomen/Pelvis CT 12/30/24 10:55 IMPRESSION: Mild probable enterocolitis Discharge Plan Discharge Clinical Impression: Abdominal pain, RLQ, Nausea & vomiting, Acute diarrhea, Hyperglycemia, Pyuria, sterile, Enterocolitis Patient Disposition: Elopement After Seen by Prov Patient Language: Arabic Prescriptions: No Action No Home Medications Follow-up/Referrals: PHYSICIAN,[employer] [Primary Care Provider, Internal Medicine]
[2024-12-30] MEDS: ONDANSETRON INJ 4 MG/2 ML VIAL IV PUSH (08:25)
[2024-12-30] MEDS: SODIUM CHLORIDE 0.9% IV 1,000 ML 999 ML IV CONT (08:25)
[2024-12-30] MEDS: ACETAMINOPHEN 500 MG TABLET 1000 MG PO (08:25)
[2024-12-30 09:09] LABS: Influenza A QL RT-PCR Negative (Negative); Influenza B QL RT-PCR Negative (Negative); SARS-CoV-2 RNA PCR Negative (Negative)
[2024-12-30 09:30] LABS: Magnesium 2.0 mg/dL (1.6-2.3)
[2024-12-30 10:38] LABS: Toxigenic C. Diff NEGATIVE (NEGATIVE)
== END 2024-12-30 11:03 | disposition left against medical advice (07) ==
PROVIDERS: Emergency Medicine; Emergency Provider Student in an Organized Health Care Education/Training Program
DX: R10.31 Right lower quadrant pain (principal); R11.2 Nausea with vomiting, unspecified; R73.9 Hyperglycemia, unspecified; R82.81 Pyuria; K52.9 Noninfective gastroenteritis and colitis, unspecified; Z20.822 Contact with and (suspected) exposure to COVID-19; Z87.442 Personal history of urinary calculi
CPT/HCPCS: 36415; 74177; 80053; 81001; 83690; 83735; 85025; 87045; 87046; 87086; 87177; 87427; 87493; 87636; 96361; 96374; 99284; A9270; J2405; J7030; Q9967